=== PATIENT | female | born 1945 | race Caucasian/White ===

== ENCOUNTER → 2020-09-06 | Outpatient (CLI) | payer OTHER ==
[~2020-09-06] MED LIST: ALLERGY RELIEF25 MG PO; AMLODIPINE-BEN1 EACH PO; BIOTIN PO; DAILY VALUE1 EACH PO; MICROZIDE12.5 MG PO
== END ==
LOC: KOH-I 09-03 15:45
DX: M43.16 Spondylolisthesis, lumbar region (principal); M51.16 Intervertebral disc disorders with radiculopathy, lumbar region; G89.29 Other chronic pain; M25.551 Pain in right hip
CPT/HCPCS: 72148; 73721

== ENCOUNTER → 2020-10-01 | Outpatient (CLI) | payer OTHER ==
[2020-10-01 11:03] LABS: HEMOGLOBIN 13.5 gm/dl (12.3-15.3); RED BLOOD COUNT 4.37 M/UL (4.00-5.10)
[2020-10-01 11:26] LABS: BUN/CREATININE RATIO 22 (0-10)
== END ==
LOC: OPSV2 10:00 → EDSTATUS 10:00 → OPSV2 10:07
PROVIDERS: Orthopaedic Surgery
DX: Z01.818 Encounter for other preprocedural examination (principal); M43.16 Spondylolisthesis, lumbar region; M48.061 Spinal stenosis, lumbar region without neurogenic claudication; M54.16 Radiculopathy, lumbar region
CPT/HCPCS: 36415; 71046; 80048; 85027; 85610; 85730; 93005

== ENCOUNTER → 2020-10-04 | Outpatient (CLI) | payer OTHER | LOC: KOH-I 15:48 → EMI 10-05 09:00 → CT 10-05 09:00 | DX: Z01.818 Encounter for other preprocedural examination (principal); M43.16 Spondylolisthesis, lumbar region; M51.36 Other intervertebral disc degeneration, lumbar region | CPT/HCPCS: 72131 ==

== ENCOUNTER → 2020-10-07 | Outpatient (CLI) | payer OTHER | LOC: LAB 08:25 | DX: Z01.812 Encounter for preprocedural laboratory examination (principal) | CPT/HCPCS: 86850; 86900; 86901 ==

== ENCOUNTER 2020-10-08 08:53 | Inpatient (IN) | payer OTHER ==
[~2020-10-08] VITALS: Ht 157.5 cm; Wt 76.7 kg
[2020-10-08 17:03] LABS: RED BLOOD COUNT 3.96 M/UL (4.00-5.10); WHITE BLOOD COUNT 12.6 K/UL (4.5-11.0)
[2020-10-08 17:28] LABS: BUN/CREATININE RATIO 18 (0-10)
[2020-10-09 05:18] LABS: HEMOGLOBIN 11.1 gm/dl (12.3-15.3); RED BLOOD COUNT 3.7 M/UL (4.00-5.10); WHITE BLOOD COUNT 14.5 K/UL (4.5-11.0)
[2020-10-09 05:33] LABS: BUN/CREATININE RATIO 22 (0-10)
[2020-10-10 08:06] LABS: RED BLOOD COUNT 3.61 M/UL (4.00-5.10)
[2020-10-10 08:22] LABS: BUN/CREATININE RATIO 18 (0-10)
[2020-10-11 12:26] LABS: HEMOGLOBIN 11.3 gm/dl (12.3-15.3); RED BLOOD COUNT 3.71 M/UL (4.00-5.10); WHITE BLOOD COUNT 15.6 K/UL (4.5-11.0)
[2020-10-11 12:45] LABS: BUN/CREATININE RATIO 20 (0-10)
== END 2020-10-11 16:07 | disposition home or self-care (01) | DRG 460 ==
LOC: OR 08:53 → M/S 13:00 → CCU 13:00 → OR 13:00 → CCU 10-09 02:16 → OR 10-09 02:18 → M/S 10-10 17:29 → CCU 10-10 17:29 → M/S 10-10 17:29
PROVIDERS: Nurse Practitioner Family; ADMIT Orthopaedic Surgery
PROC: 0SG00KJ Fusion of Lumbar Vertebral Joint with Nonautologous Tissue Substitute, Posterior Approach, Anterior Column, Open Approach (ICD-10-PCS; principal; 2020-10-09)
PROC: 01NB0ZZ Release Lumbar Nerve, Open Approach (ICD-10-PCS; 2020-10-09)
DX: M43.16 Spondylolisthesis, lumbar region (principal); M48.061 Spinal stenosis, lumbar region without neurogenic claudication; M54.16 Radiculopathy, lumbar region; I95.9 Hypotension, unspecified; D72.829 Elevated white blood cell count, unspecified; R42 Dizziness and giddiness; R07.9 Chest pain, unspecified; I10 Essential (primary) hypertension; Z96.642 Presence of left artificial hip joint; Z96.652 Presence of left artificial knee joint; G89.29 Other chronic pain; M54.9 Dorsalgia, unspecified; Z20.822 Contact with and (suspected) exposure to COVID-19; R01.1 Cardiac murmur, unspecified; M85.80 Other specified disorders of bone density and structure, unspecified site; Z82.49 Family history of ischemic heart disease and other diseases of the circulatory system
CPT/HCPCS: 36415; 71045; 72100; 72110; 76000; 80048; 81001; 85025; 85027; 86850; 86900; 86901; 87040; 87081; 87086; 97116-GP-CQ; 97161; 97166; 97530; 97530-GP-CQ; 97535; C1713; C1762; C1781; J0690; J1040; J1100; J1170; J2001; J2250; J2405; J2704; J2765; J3010; J3370; J7030; J7040; J7120

== ENCOUNTER → 2020-10-15 | Outpatient (CLI) | payer OTHER | LOC: KOH-I 11:02 | DX: K59.00 Constipation, unspecified (principal) | CPT/HCPCS: 74018 ==

== ENCOUNTER → 2021-08-20 | Outpatient (CLI) | payer OTHER | LOC: KOH-I 08:48 | DX: K76.0 Fatty (change of) liver, not elsewhere classified (principal); N27.0 Small kidney, unilateral | CPT/HCPCS: 76705 ==

== ENCOUNTER → 2021-09-16 | Outpatient (CLI) | payer OTHER | LOC: RT 13:58 | DX: I10 Essential (primary) hypertension (principal) | CPT/HCPCS: 93005 ==

== ENCOUNTER → 2021-09-19 | Outpatient (CLI) | payer OTHER | LOC: EXRD 10:31 | DX: R09.89 Other specified symptoms and signs involving the circulatory and respiratory systems (principal); I65.23 Occlusion and stenosis of bilateral carotid arteries | CPT/HCPCS: 93880 ==